=== PATIENT | male | born 1970 ===

== ENCOUNTER 2023-02-28 10:58 | Outpatient (REF) | payer OTHER, SELFPAY | END 2023-02-28 10:59 | disposition home or self-care (01) | LOC: HO.LNP 10:58 | PROVIDERS: Visit Provider Otolaryngology | DX: H66.92 Otitis media, unspecified, left ear (principal); B48.8 Other specified mycoses | CPT/HCPCS: 87070; 87077; 87102; 87186; 87205 ==